=== PATIENT | female | born 1990 | race Caucasian/White ===

== ENCOUNTER 2017-03-03 21:38 | Emergency (ER) | payer OTHER ==
[~2017-03-03] VITALS: Ht 165.1 cm; Wt 63.6 kg
[2017-03-03 21:41] VITALS: Ht 165.1 cm; Wt 63.6 kg
[2017-03-03] MEDS ORDERED: IBUPROFEN 800 MG TAB PO ONE (22:00)
[2017-03-03] MEDS ORDERED: IBUP-1542 PO (22:38)
--- NOTE | 2017-03-03 22:51 | ERD ---
ER Documentation Chief Complaint Date/Time DATE: 03/03/17 TIME: 22:47 Chief Complaint LEFT KNEE PAIN, PATIENT WAS DANCING WHEN PT FELT KNEE POP OUT OF PLACE HPI Patient is a 26-year-old female with no medical problems who presents with left knee pain. She says that she was dancing and that "it twisted out of place". She felt it pop back into place after she fell to the ground. She said that it happened just prior to arrival. She was brought in by ambulance. There is pain and swelling. She has had no treatment yet. The pain comes and goes. She says that her primary doctor is Dr. Ren from [facility]. ROS All systems reviewed and are negative except as per history of present illness. Medications Home Meds Active Scripts Ibuprofen* (Motrin*) 600 Mg Tab, 600 MG PO Q8, #30 TAB Prov:JUDITH MCKEON MD 03/03/17 Allergies Allergies: Coded Allergies: No Known Allergy (Unverified , 03/03/17) PMhx/Soc Medical and Surgical Hx: pt denies Medical Hx, pt denies Surgical Hx Hx Alcohol Use: No Hx Substance Use: No Hx Tobacco Use: No Smoking Status: Unknown if ever smoked Physical Exam Vitals Vital Signs Date Time Temp Pulse Resp B/P Pulse Ox O2 Delivery O2 Flow Rate FiO2 03/03/17 21:41 99.2 57 17 120/70 100 Physical Exam Const: Moderate distress secondary to pain Head: Atraumatic Eyes: Normal Conjunctiva ENT: Normal External Ears, Nose and Mouth. Neck: Full range of motion..~ No meningismus. Resp: Clear to auscultation bilaterally Cardio: Regular rate and rhythm, no murmurs Abd: Soft, non tender, non distended. Normal bowel sounds Skin: No petechiae or rashes Back: No midline or flank tenderness Ext: Swelling to the joint line of the left knee, tenderness to palpation, no obvious deformity noted, no obvious laxity of the knee with anterior drawer Neur: Awake and alert Psych: Normal Mood and Affect Results 24 hrs Current Medications Medications (Trade) Dose Ordered Sig/Leoncio Route PRN Reason Start Time Stop Time Status Last Admin Dose Admin Ibuprofen (Motrin) 800 mg ONCE ONCE PO 03/03/17 22:00 03/03/17 22:01 DC Procedures/MDM X-ray Knee 3V Interpreted by me: Bones: No fracture Joints: No dislocation Foreign body: None Splint Note Type: Knee immobilizer Location: Left knee Indication: Possible soft tissue injury to left knee Splint Assessment: Neurovascularly intact post splint placement with good fit. Patient is a 26-year-old female who presents with a left knee injury. She had an x-ray done which did not show fracture or dislocation. However given the mechanism of injury I am concerned about a possible soft tissue injury such as an ACL tear or meniscal injury. 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 I do think that outpatient MRI would be appropriate within the next few days to evaluate for soft tissue injury. The patient will be placed in a knee immobilizer for comfort and to prevent further injury. She was given crutches. She can take ibuprofen as needed for pain. She can return for any worsening symptoms. Departure Diagnosis: Primary Impression: Knee injuries Encounter type: initial encounter Laterality: left Qualified Code: S89.92XA - Knee injuries, left, initial encounter Additional Impression: Knee pain Laterality: left Chronicity: acute Qualified Code: M25.562 - Acute pain of left knee Condition: Fair Patient Instructions: Knee Pain, Meniscus Injury (Possible), Knee Pain, Uncertain Cause Referrals: Your doctor Dr. Ren Additional Instructions: Call your primary care doctor TOMORROW for an appointment during the next 1-2 days.See the doctor sooner or return here if your condition worsens before your appointment time. JUDITH MCKEON MD Mar 03, 2017 22:50
--- NOTE | 2017-03-03 22:59 | RADRPT ---
PROCEDURE: XR Knee. CLINICAL INDICATION: Left knee pain. TECHNIQUE: 4 views of the left knee. COMPARISON: None available FINDINGS: There is no acute fracture or dislocation. The joint spaces are preserved. No joint effusion is id entified. IMPRESSION: 1. No osseous or articular abnormality of the left knee. RPTAT: HTAR .Americo Razo MD, MD Date Time Electronically viewed and signed by .Americo Razo MD, on 03/03/2017 22:59 .R/
[2017-03-03 23:01] VITALS: BP 118/68; PULSE 60; RESP 17; TEMP 99.2
== END 2017-03-03 23:02 | disposition home or self-care (01) ==
LOC: FTE 21:38
DX: S89.92XA Unspecified injury of left lower leg, initial encounter (principal); W18.39XA Other fall on same level, initial encounter; Y92.9 Unspecified place or not applicable
CPT/HCPCS: 73562